=== PATIENT | male | born 1995 | race Caucasian/White ===

== ENCOUNTER 2018-12-07 04:56 | Emergency (ER) | payer OTHER ==
[2018-12-07] MEDS: ACETAMINOPHEN 650MG/20.3ML CUP PO (05:51)
[2018-12-07] MEDS: LIDOCAINE 1% (MDV) 20 ML INJ SC (06:04)
== END 2018-12-07 07:01 | disposition home or self-care (01) ==
LOC: FTE 04:56
DX: S01.81XA Laceration without foreign body of other part of head, initial encounter (principal); S01.312A Laceration without foreign body of left ear, initial encounter; W01.0XXA Fall on same level from slipping, tripping and stumbling without subsequent striking against object, initial encounter; Y92.9 Unspecified place or not applicable
CPT/HCPCS: 12013; 99283-25

== ENCOUNTER 2018-12-26 22:45 | Emergency (ER) | payer SELFPAY, OTHER | END 2018-12-26 23:23 | disposition left against medical advice (07) | LOC: E/R 22:45 | DX: Z53.21 Procedure and treatment not carried out due to patient leaving prior to being seen by health care provider (principal) ==